=== PATIENT | female | born 1960 | race Caucasian/White ===

== ENCOUNTER 2019-01-08 11:46 | Emergency (ER) | payer MEDICAID ==
[~2019-01-08] VITALS: Ht 152.4 cm; Wt 108.9 kg
[2019-01-08] MEDS ORDERED: SODIUM CHLORIDE 0.9% 1,000 ML IV ONE (11:51)
[2019-01-08 12:14] LABS: White Blood Cell 2.8 10^3/uL (4.4-10.8)
[2019-01-08 12:15] LABS: Basophils # (auto) 0.1 uL; Eosinophils # (auto) 0 uL; Lymphocytes # (auto) 1.5 uL; Monocytes # (auto) 0.3 uL; Red Cell Distribution Width 14.2 % (11.8-14.3)
[2019-01-08 12:18] LABS: Eosinophils % (auto) 0.9 % (0.0-7.0); Hematocrit 41.6 % (36.0-46.0); Hemoglobin 14.8 g/dL (12.2-16.2); Lymphocytes % (auto) 53.7 % (10.0-50.0); Mean Corpuscular Hgb Conc. 35.6 g/dL (32.0-36.0); Mean Corpuscular Volume 98.4 fL (80.0-100.0); Monocytes % (auto) 10.2 % (0.0-12.0); Neutrophils # (auto) 0.9 uL; Neutrophils % (auto) 33.2 % (37.0-80.0); Nucleated Red Blood Cells % 0.1 %; Red Blood Cells 4.23 10^6/uL (4.0-5.20)
[2019-01-08 12:30] LABS: Albumin 3.1 g/dL (3.4-5.0); Calcium 7.8 mg/dL (8.5-10.1); Potassium 3.9 mmol/L (3.5-5.1)
[2019-01-08 12:45] LABS: BUN/Creatinine Ratio 9.1; Bilirubin, Total 1.1 mg/dL (0.2-1.0); Total Protein 8.3 g/dL (6.4-8.2)
[2019-01-08 12:49] LABS: Platelet Count (auto) 61 10^3/uL (140-450)
[2019-01-08] MEDS ORDERED: SODIUM CHLORIDE 0.9% 1,000 ML IVB ONE (13:07)
[2019-01-08] MEDS ORDERED: KETOROLAC TROMETH 30 MG/ML 1ML VIAL IV ONE (13:15)
[2019-01-08 14:15] VITALS: BP 121/79
== END 2019-01-08 14:29 | disposition home or self-care (01) ==
LOC: ER 11:46 → EDBD 11:46 → ER 14:29
DX: F10.129 Alcohol abuse with intoxication, unspecified (principal); E11.9 Type 2 diabetes mellitus without complications; I10 Essential (primary) hypertension; Y90.8 Blood alcohol level of 240 mg/100 ml or more
CPT/HCPCS: 36415; 80053; 80320; 85025; 93005; 96374; 99284; J1885; J7030

== ENCOUNTER 2019-12-12 19:31 | Inpatient (IN) | payer MEDICAID ==
[~2019-12-12] VITALS: Ht 160 cm; Wt 122.1 kg
[2019-12-12] MEDS ORDERED: SODIUM CHLORIDE 0.9% 1,000 ML IV ONE (20:15)
[2019-12-12] MEDS ORDERED: InsuLIN REG 1unit/0.01ml Soln (100units/ml) IV ONE (20:15)
[2019-12-12] MEDS ORDERED: THIAMINE 100mg/ml INJ (200mg/2ml VIAL) IV ONE (20:45)
[2019-12-12 21:14] LABS: Basophils # (auto) 0 10 ^3/uL (0-0.2); Basophils % (auto) 0.7 % (0.0-2.0); Eosinophils # (auto) 0 10 ^3/uL (0-0.8); Eosinophils % (auto) 0.8 % (0.0-7.0); Hematocrit 47.4 % (36.0-46.0); Lymphocytes # (auto) 0.8 10 ^3/uL (0.4-5.4); Lymphocytes % (auto) 16.5 % (10.0-50.0); Mean Corpuscular Hemoglobin 32.6 pg (28.0-32.0); Mean Corpuscular Hgb Conc. 33.8 g/dL (32.0-36.0); Mean Corpuscular Volume 96.4 fL (80.0-100.0); Monocytes # (auto) 0.6 10 ^3/uL (0-1.3); Monocytes % (auto) 12.6 % (0.0-12.0); Neutrophils # (auto) 3.2 10 ^3/uL (1.6-8.6); Neutrophils % (auto) 69.4 % (37.0-80.0); Nucleated Red Blood Cells % 0.1 %; Platelet Count (auto) 80 10^3/uL (140-450); Red Blood Cells 4.92 10^6/uL (4.0-5.20); Red Cell Distribution Width 14.7 % (11.8-14.3); White Blood Cell 4.6 10^3/uL (4.4-10.8)
[2019-12-12 21:24] LABS: Urine Bacteria NONE SEEN /hpf (None Seen); Urine Blood Negative /uL (Negative); Urine Mucus FEW (None Seen); Urine Specific Gravity 1.034 (1.001-1.035); Urine WBC 1 /hpf (0 - 5)
[2019-12-12 21:30] LABS: INR 1.14 (0.9-1.15); Partial Thromboplastin Time 24.5 sec (23.0-31.2)
[2019-12-12 21:35] LABS: Chloride 98 mmol/L (98-107); Potassium 4.5 mmol/L (3.5-5.1); Sodium 135 mmol/L (136-145)
[2019-12-12 21:38] LABS: Alanine Aminotransferase 103 U/L (13-56); Albumin 3.2 g/dL (3.4-5.0); Anion Gap 9 (5-15); BUN/Creatinine Ratio 10.4; Blood Urea Nitrogen 13 mg/dL (7-18); Calcium 8.7 mg/dL (8.5-10.1); Carbon Dioxide 28 mmol/L (21-32); GFR African American 57 mL/min; GFR Non-African American 47 mL/min
[2019-12-12 21:43] LABS: Alkaline Phosphatase 125 U/L (45-117); Aspartate Aminotransferase 107 U/L (15-37); Bilirubin, Total 1.3 mg/dL (0.2-1.0); Total Protein 8.2 g/dL (6.4-8.2)
[2019-12-12 21:46] LABS: Barbiturate Scree,Urine NEGATIVE (NEGATIVE); Benzodiazephine Screen, Urine NEGATIVE (NEGATIVE); Cannabinoid Screen, Urine NEGATIVE (NEGATIVE); Cocaine Screen, Urine NEGATIVE (NEGATIVE); Opiate Scree,Urine POSITIVE (NEGATIVE); Phencyclidine Screen, Urine NEGATIVE (NEGATIVE)
[2019-12-12 21:47] LABS: Glucose 422 mg/dL (74-106)
[2019-12-12 21:55] LABS: Amphetamine Screen, Urine NEGATIVE (NEGATIVE)
[2019-12-12] MEDS ORDERED: InsuLIN REG 1unit/0.01ml Soln (100units/ml) SC ONE (22:15)
[2019-12-13] MEDS ORDERED: InsuLIN REG 1unit/0.01ml Soln (100units/ml) SC ONE (00:30)
[2019-12-13] MEDS ORDERED: SODIUM CHLORIDE 0.9% 250 ML IV ONE (01:30)
[2019-12-13] MEDS ORDERED: LACTULOSE 20Gm/30ML SOLN PO ONE (02:15)
[2019-12-13] MEDS ORDERED: NITROGLYCERIN 0.4 MG SL TAB SL PRN (02:30)
[2019-12-13] MEDS ORDERED: ONDANSETRON HCL 4 MG/2 ML VIAL IV PRN ×2 (02:30→16:45)
[2019-12-13] MEDS ORDERED: MORPHINE SULF INJ 2 MG/ML SYRINGE 1ML IV PRN (02:30)
[2019-12-13] MEDS ORDERED: DEXTROSE (50%) 50ML SYRG IV PRN ×2 (02:30→16:45)
[2019-12-13] MEDS: ACCU-CHEK COMFORT CURVE STRIP VI SCH ×5 (04:18→21:51)
[2019-12-13] MEDS: InsuLIN REG 1unit/0.01ml Soln (100units/ml) SC SCH ×5 (04:20→21:53)
[2019-12-13] MEDS ORDERED: LACTULOSE 20Gm/30ML SOLN PO SCH (10:00)
[2019-12-13] MEDS: FAMOTIDINE 20 MG TAB PO SCH ×2 (10:01→21:51)
--- NOTE | 2019-12-13 11:30 | NUR ---
Telemetry admit from [facility] admitted to Telemetry unit after SBAR received. Patient oriented to Alize Swan, primary RN, unit, room, bed, and unit policies regarding patient care and visiting hours. Patient now on continuous telemetry monitoring, tele box # 45 and telemetry reading on arrival to unit is . Patient placed on bedside oxygen, weighed by bedscale and encouraged to call if they need something. All questions and concerns addressed, patient verbalized understanding. Note:
--- NOTE | 2019-12-13 11:40 | NUR ---
PT ARRIVED FROM ER VIA GURNEY, TO ROOM 204, ALERT TO SELF, UNDERSTAND ALL THE COMMANDS BUT UNABLE TO FOLLOW THROUGH, CONFUSED TO TIME AND PLACE, SLEEPY, OXYGEN 3 NC SAT AT 97%, RIVAS CATHETER TO GRAVITY, URINE IS YELLOW TO CLEAR, NEXT TO THE NURSING STATION, FALL RISK PRECAUTION, BED ALARM ACTIVATED, CALL LIGHT WITHIN REACH, CHECK ON PT AT ALL TIMES
[2019-12-13 13:00] VITALS: BP 133/64
[2019-12-13] MEDS: rifAXIMin 550 MG TAB PO SCH ×2 (13:01→21:51)
[2019-12-13] MEDS: LACTULOSE 20Gm/30ML SOLN PO SCH ×3 (13:01→21:51)
[2019-12-13 16:36] VITALS: BP 118/76
--- NOTE | 2019-12-13 17:30 | NUR ---
PT SPENT ALL MOST OF THE DAY SLEEPY, PT START TO BE FULL AWAKE, TRY TO GET OUT OF BED STATED I NEED TO PEE > , PT REMINDED THAT SHE HAVE A RIVAS CATHETER, REQUESTED A JELLO, STABLE, NO DISTRESS NOTED
--- NOTE | 2019-12-13 18:33 | NUR ---
PT CONTINUE STABLE, CONTINUE MONITORING
--- NOTE | 2019-12-13 19:20 | NUR ---
Opening Shift Note Patient is AOx3, she is awake and trying to stand up from her bed. Patient is confused about her Nowak and why she has it. Patient given education about Nowak and patient verbally agreed to understanding. Patient able to stand up with RN at bedside. Patient said, " I need to stand up because I am tired of laying down." Standby assist by this RN until patient able to sit and lay back in bed. Bed is locked in lowest position, bed alarm put on before leaving room, and call light is within reach. POC discussed with patient. Patient needs reinforcement. No s/s of distress or SOB noted. Will continue to monitor.
[2019-12-13] MEDS: INSULIN LANTUS (GLARGINE) 1 /0.01ml (100units/ml) SC SCH (21:52)
[2019-12-13 22:00] VITALS: BP 130/85
[2019-12-14 06:22] LABS: Basophils # (auto) 0 10 ^3/uL (0-0.2); Basophils % (auto) 1.4 % (0.0-2.0); Eosinophils # (auto) 0.1 10 ^3/uL (0-0.8); Eosinophils % (auto) 1.9 % (0.0-7.0); Hematocrit 40.2 % (36.0-46.0); Hemoglobin 13.7 g/dL (12.2-16.2); Mean Corpuscular Hemoglobin 32.3 pg (28.0-32.0); Mean Corpuscular Hgb Conc. 34.1 g/dL (32.0-36.0); Mean Corpuscular Volume 94.7 fL (80.0-100.0); Monocytes # (auto) 0.5 10 ^3/uL (0-1.3); Monocytes % (auto) 12.7 % (0.0-12.0); Platelet Count (auto) 67 10^3/uL (140-450); Red Blood Cells 4.25 10^6/uL (4.0-5.20); Red Cell Distribution Width 14.6 % (11.8-14.3); White Blood Cell 3.6 10^3/uL (4.4-10.8)
[2019-12-14] MEDS: LACTULOSE 20Gm/30ML SOLN PO SCH ×4 (06:43→22:24)
[2019-12-14] MEDS: ACCU-CHEK COMFORT CURVE STRIP VI SCH ×4 (06:44→22:15)
[2019-12-14] MEDS: InsuLIN REG 1unit/0.01ml Soln (100units/ml) SC SCH ×4 (06:50→22:22)
[2019-12-14 06:58] LABS: Albumin 2.6 g/dL (3.4-5.0)
[2019-12-14 07:23] LABS: BUN/Creatinine Ratio 15.8; Bilirubin, Total 1.4 mg/dL (0.2-1.0); Calcium 8.1 mg/dL (8.5-10.1); Total Protein 6.7 g/dL (6.4-8.2)
--- NOTE | 2019-12-14 07:30 | NUR ---
Opening Shift Note Assumed care of patient, awake and alert. Respirations are even and unlabored. No S/S of distress/SOB or pain. Urinary catheter in place. Collection bag is hanging below bladder and is free of kinks. Bed is low, locked with 2x side rails up. Call light is within reach. Instructed on POC and to call for assist PRN, will continue to monitor for changes Q1hr and PRN.
[2019-12-14 08:35] VITALS: BP 131/71
--- NOTE | 2019-12-14 09:10 | NUR ---
Dr. Chi at bedside MD discussing POC with patient. Patient c/o right shoulder pain. Received orders for Xray of right shoulder. Orders read back to verify.
[2019-12-14] MEDS: MULTIPLE VITAMINS W/ MINERALS TAB PO SCH (09:34)
[2019-12-14] MEDS: FAMOTIDINE 20 MG TAB PO SCH ×2 (09:34→22:25)
[2019-12-14] MEDS: rifAXIMin 550 MG TAB PO SCH ×2 (09:34→22:24)
[2019-12-14] MEDS: THIAMINE HCL 100 MG TAB PO SCH (09:36)
[2019-12-14] MEDS ORDERED: FOLIC ACID 1 MG TAB PO ONE (12:00)
--- NOTE | 2019-12-14 12:00 | NUR ---
IV insertion IV access obtained, via clean sterile technique by inserting a 20 gauge catheter at the lower left FA after (2) attempt(s). IV secured properly. No trauma to site. Patient tolerated well.
[2019-12-14] MEDS ORDERED: IOHEXOL 300 MG/ML 100ML BOTTLE IJ ONE (12:08)
--- NOTE | 2019-12-14 12:10 | NUR ---
Called Radiology To inform them that patient has a new 20g IV placed to left lower FA.
[2019-12-14 12:40] VITALS: BP 129/67
--- NOTE | 2019-12-14 13:50 | NUR ---
assessment Patient is a 58 year old female who is alert and oriented. Prior to admission patient lived home with friends and was independent. Patient informed me her PCP is Dr Hodges. Patient informed me she has no safety issues regarding returning home on discharge. Patient informed me she could use a fww for ambulating around her property. I have asked BUTCH Abarca for consult for fww. Patient informed me she has good social support. I informed patient she has a right to speak to a social media community manager regarding all care. I informed patient she has a right to participate in any and all discharge planning. Patient does not have a POA and advanced directive. I have offered patient information on POA and advanced directives. I informed the patient the advantages and benefits of having an Advanced Directive. Patient verbalized understanding and agreed to discharge plan. Addendum: 12/14/19 at 1354 by Ginger DUTTON Amended: Links added.
[2019-12-14] MEDS ORDERED: INSLISPI SC (14:03)
[2019-12-14] MEDS ORDERED: INSLANTI SC (14:03)
[2019-12-14] MEDS ORDERED: BENA20TA14 PO (14:03)
--- NOTE | 2019-12-14 15:13 | NUR ---
Home medications Updated.
--- NOTE | 2019-12-14 15:41 | NUR ---
D/C Planning Per social service consult for a walker. Faxed clinical information to [employer]. Per Windy with DME they will deliver walker between 16:30-17:30.
[2019-12-14 16:29] VITALS: BP 103/52
--- NOTE | 2019-12-14 16:44 | NUR ---
Bone scan Per Waqar from Nuclear medicine, it is too late for patient to have ordered bone scan done. Patient will have to wait until Tuesday to get bone scan done. Will relay information.
--- NOTE | 2019-12-14 16:51 | NUR ---
FWW Delivered to bedside.
--- NOTE | 2019-12-14 19:20 | NUR ---
Opening Shift Note Assumed care of patient after receiving report from day RN. Patient is awake and alert with no S/S of distress/SOB or pain. Call light within reach, bed in lowest, locked position x2 side rails. Instructed on POC and to call for assist PRN, will continue to monitor for changes Q1hr and PRN.
[2019-12-14 22:00] VITALS: BP 136/59
[2019-12-14] MEDS: INSULIN LANTUS (GLARGINE) 1 /0.01ml (100units/ml) SC SCH (22:22)
--- NOTE | 2019-12-14 23:04 | NUR ---
Patient ambulated, Nowak education Patient ambulated with standby assistance to help with carrying Nowak catheter bag. Patient wore nonslip socks and ambulated with even, steady gait. Patient was concerned about 'how she would poop with a catheter thing inside her'. Patient educated regarding where the catheter is placed in order to empty the urine from the bladder and that stool comes from a different hole, that it will not be a problem when she needs to have a BM. Complete linen change performed. Patient ambulated back to bed with standby assistance. Patient now in bed resting comfortably with bed alarm on for safety.
--- NOTE | 2019-12-15 00:18 | NUR ---
Care endorsed to CARYN Griffin RN.
--- NOTE | 2019-12-15 00:20 | NUR ---
Received report from Gloria Storm.
[2019-12-15 05:04] LABS: Basophils # (auto) 0 10 ^3/uL (0-0.2); Hemoglobin 14.1 g/dL (12.2-16.2); Lymphocytes # (auto) 0.9 10 ^3/uL (0.4-5.4); Lymphocytes % (auto) 29.8 % (10.0-50.0); Monocytes # (auto) 0.4 10 ^3/uL (0-1.3); Neutrophils # (auto) 1.7 10 ^3/uL (1.6-8.6); Nucleated Red Blood Cells % 0.1 %; Red Cell Distribution Width 14.6 % (11.8-14.3); White Blood Cell 3.2 10^3/uL (4.4-10.8)
[2019-12-15 05:06] LABS: Basophils % (auto) 0.8 % (0.0-2.0); Eosinophils # (auto) 0.1 10 ^3/uL (0-0.8); Eosinophils % (auto) 1.8 % (0.0-7.0); Hematocrit 40.7 % (36.0-46.0); Mean Corpuscular Hemoglobin 32.7 pg (28.0-32.0); Mean Corpuscular Hgb Conc. 34.7 g/dL (32.0-36.0); Mean Corpuscular Volume 94.3 fL (80.0-100.0); Monocytes % (auto) 12.8 % (0.0-12.0); Neutrophils % (auto) 54.8 % (37.0-80.0); Platelet Count (auto) 61 10^3/uL (140-450); Red Blood Cells 4.31 10^6/uL (4.0-5.20)
[2019-12-15 05:22] LABS: INR 1.19 (0.9-1.15)
[2019-12-15] MEDS: LACTULOSE 20Gm/30ML SOLN PO SCH ×2 (05:22→11:32)
[2019-12-15 05:26] LABS: Albumin 2.5 g/dL (3.4-5.0); Calcium 8.2 mg/dL (8.5-10.1); Potassium 3.8 mmol/L (3.5-5.1)
[2019-12-15 05:29] LABS: BUN/Creatinine Ratio 13.8; Bilirubin, Total 1.3 mg/dL (0.2-1.0); Phosphorus 2.9 mg/dL (2.5-4.90); Total Protein 6.4 g/dL (6.4-8.2)
[2019-12-15 05:40] VITALS: BP 113/62
[2019-12-15] MEDS: ACCU-CHEK COMFORT CURVE STRIP VI SCH ×2 (06:26→11:31)
[2019-12-15] MEDS: InsuLIN REG 1unit/0.01ml Soln (100units/ml) SC SCH ×2 (06:27→11:31)
--- NOTE | 2019-12-15 07:17 | NUR ---
Repot given to Gloria Abarca, patient is resting no distress.
--- NOTE | 2019-12-15 07:30 | NUR ---
Opening Shift Note Assumed care of patient, awake and alert. Respirations are even and unlabored. No S/S of distress/SOB or pain. Bed is low, locked with 2x side rails up. Call light is within reach. Instructed on POC and to call for assist PRN, will continue to monitor for changes Q1hr and PRN.
[2019-12-15 08:40] VITALS: BP 121/69
--- NOTE | 2019-12-15 08:45 | NUR ---
Dr. Chi at bedside Discussing POC with patient. Patient to be discharged later today. Patient wishes to follow up with Alex Carpio for continuation of care.
[2019-12-15] MEDS: MULTIPLE VITAMINS W/ MINERALS TAB PO SCH (08:59)
[2019-12-15] MEDS: FAMOTIDINE 20 MG TAB PO SCH (08:59)
[2019-12-15] MEDS: rifAXIMin 550 MG TAB PO SCH (08:59)
[2019-12-15] MEDS: THIAMINE HCL 100 MG TAB PO SCH (08:59)
[2019-12-15] MEDS ORDERED: FOLIC ACID 1 MG TAB PO SCH (10:00)
[2019-12-15] MEDS ORDERED: MULT-351 PO (11:14)
[2019-12-15] MEDS ORDERED: LACT10SO3 PO (11:14)
[2019-12-15] MEDS ORDERED: FOLI1TAB6 PO (11:14)
[2019-12-15] MEDS ORDERED: RIFA550T PO (11:14)
[2019-12-15] MEDS ORDERED: THIA100T10 PO (11:14)
[2019-12-15] MEDS ORDERED: OMEP-263 PO (11:17)
[2019-12-15 12:35] VITALS: BP 110/66
[2019-12-15 13:38] VITALS: BP 109/62
--- NOTE | 2019-12-15 16:08 | NUR ---
Discharge instructions given as ordered. Encourage to follow up with PMD as instructed. Provided patient with contact information to PCP Dr. Tillman and also provided patient with information to [facility] for F/U with Urology and Hepatology. All questions and concerns addressed. Patient verbalized understanding. IV removed with catheter intact, pressure dressing applied, nava catheter removed. Telemetry unit returned to ICU. Patient taken to taxi vehicle via wheelchair with all personal belongings and FWW. Patient also has prescriptions that were filled by [facility]. Patient advised to take medications as directed and to not stop/skip any doses unless recommended by her doctor. No distress noted at time of departure.
[2019-12-17 13:12] LABS: Hepatitis B Surface Antibody Negative
[2019-12-17 13:41] LABS: Hepatitis A Total Antibody Positive
[2019-12-17 16:56] LABS: Hepatitis B Core Total AB Negative; Hepatitis B Surface Antigen Negative (Negative)
[2019-12-19 09:09] LABS: Hepatitis C Antibody Positive (Negative)
== END 2019-12-15 16:44 | disposition home or self-care (01) | DRG 279 ==
LOC: ER 19:31 → EDBD 19:31 → TELE 19:32 → TELE-CENTR 12-13 11:37
PROVIDERS: ADMIT Nurse Practitioner; ATTEND Internal Medicine
DX: K72.90 Hepatic failure, unspecified without coma (principal); N17.9 Acute kidney failure, unspecified; E44.1 Mild protein-calorie malnutrition; E11.65 Type 2 diabetes mellitus with hyperglycemia; E66.01 Morbid (severe) obesity due to excess calories; E72.20 Disorder of urea cycle metabolism, unspecified; Z68.42 Body mass index [BMI] 45.0-49.9, adult; E86.0 Dehydration; K70.30 Alcoholic cirrhosis of liver without ascites; E11.22 Type 2 diabetes mellitus with diabetic chronic kidney disease; N18.9 Chronic kidney disease, unspecified; I12.9 Hypertensive chronic kidney disease with stage 1 through stage 4 chronic kidney disease, or unspecified chronic kidney disease; D25.9 Leiomyoma of uterus, unspecified; F10.20 Alcohol dependence, uncomplicated; C64.2 Malignant neoplasm of left kidney, except renal pelvis; K82.8 Other specified diseases of gallbladder; Z79.4 Long term (current) use of insulin; Z83.3 Family history of diabetes mellitus; Z79.899 Other long term (current) drug therapy
CPT/HCPCS: 36415; 70450; 72125; 73030; 74176; 74178; 80053; 80061; 80307; 81001; 82140; 82962; 83036; 83690; 83735; 83880; 84100; 84443; 84484; 85025; 85610; 85730; 86704; 86706; 86708; 86803; 87340; 93005; 96361; 96372; 96374; 96375; G0378; J1815; J2405

== ENCOUNTER 2020-11-21 20:48 | Emergency (ER) | payer MEDICAID ==
[~2020-11-21] VITALS: Ht 162.6 cm; Wt 90.7 kg
[~2020-11-21 20:48] MED LIST: BENA20TA14 PO; FOLI1TAB6 PO; INSLANTI SC; INSLISPI SC; LACT10SO3 PO; MULT-351 PO; OMEP-263 PO; RIFA550T PO; THIA100T10 PO
[2020-11-21 22:12] LABS: Basophils # (auto) 0 10 ^3/uL (0-0.2); Basophils % (auto) 1.2 % (0.0-2.0); Eosinophils # (auto) 0 10 ^3/uL (0-0.8); Eosinophils % (auto) 0.5 % (0.0-7.0); Hematocrit 46.2 % (36.0-46.0); Hemoglobin 15.5 g/dL (12.2-16.2); Lymphocytes # (auto) 1.6 10 ^3/uL (0.4-5.4); Lymphocytes % (auto) 42.4 % (10.0-50.0); Mean Corpuscular Hgb Conc. 33.6 g/dL (32.0-36.0); Mean Corpuscular Volume 98.3 fL (80.0-100.0); Monocytes # (auto) 0.4 10 ^3/uL (0-1.3); Monocytes % (auto) 9.3 % (0.0-12.0); Neutrophils # (auto) 1.8 10 ^3/uL (1.6-8.6); Neutrophils % (auto) 46.6 % (37.0-80.0); Nucleated Red Blood Cells % 0.4 %; Red Cell Distribution Width 14.7 % (11.8-14.3); White Blood Cell 3.8 10^3/uL (4.4-10.8)
[2020-11-21 22:27] LABS: INR 1.27 (0.9-1.15); Partial Thromboplastin Time 25.8 sec (23.6-33.0)
[2020-11-21 22:29] LABS: Urine Bacteria FEW /hpf (None Seen); Urine Blood Negative /uL (Negative); Urine WBC 1 /hpf (0 - 5)
[2020-11-21 22:38] LABS: Albumin 3.2 g/dL (3.4-5.0); Anion Gap 13 (5-15); Blood Urea Nitrogen 7 mg/dL (7-18); Calcium 9.2 mg/dL (8.5-10.1); Carbon Dioxide 27 mmol/L (21-32); Chloride 96 mmol/L (98-107); Magnesium 2.2 mg/dL (1.6-2.6); Potassium 4.2 mmol/L (3.5-5.1); Sodium 136 mmol/L (136-145)
[2020-11-21 22:39] LABS: Salicylate < 1.7 mg/dL (2.8-20.0)
[2020-11-21 22:41] LABS: Alanine Aminotransferase 188 U/L (13-56); Aspartate Aminotransferase 205 U/L (15-37); Bilirubin, Total 1.2 mg/dL (0.2-1.0); GFR African American 65 mL/min; GFR Non-African American 53 mL/min; Total Protein 8.5 g/dL (6.4-8.2)
[2020-11-21 22:46] LABS: Alkaline Phosphatase 145 U/L (45-117)
[2020-11-21 22:47] LABS: Acetaminophen < 2.0 ug/mL (10-30)
[2020-11-21] MEDS ORDERED: SODIUM CHLORIDE 0.9% 1,000 ML IV ONE (23:30)
[2020-11-22] MEDS ORDERED: diazePAM 5 MG TAB PO ONE (00:15)
[2020-11-22 00:20] LABS: Blood Alcohol 353.3 mg/dL (0-5)
[2020-11-22 00:21] LABS: BUN/Creatinine Ratio 6.3
[2020-11-22 00:24] LABS: Glucose 605 mg/dL (74-106)
[2020-11-22 01:39] LABS: Amphetamine Screen, Urine NEGATIVE (NEGATIVE); Barbiturate Scree,Urine NEGATIVE (NEGATIVE); Benzodiazephine Screen, Urine NEGATIVE (NEGATIVE); Cannabinoid Screen, Urine NEGATIVE (NEGATIVE); Cocaine Screen, Urine NEGATIVE (NEGATIVE); Opiate Scree,Urine NEGATIVE (NEGATIVE); Phencyclidine Screen, Urine NEGATIVE (NEGATIVE)
[2020-11-22] MEDS ORDERED: SODIUM CHLORIDE 0.9% 1,000 ML IV ONE (01:45)
[2020-11-22] MEDS: ACCU-CHEK COMFORT CURVE STRIP VI SCH ×4 (02:35→05:05)
[2020-11-22 06:03] VITALS: BP 128/59
== END 2020-11-22 06:18 | disposition home or self-care (01) ==
LOC: EDBD 20:48 → ER 20:49
DX: F10.129 Alcohol abuse with intoxication, unspecified (principal); M54.50 Low back pain, unspecified; J45.909 Unspecified asthma, uncomplicated; E11.9 Type 2 diabetes mellitus without complications; I10 Essential (primary) hypertension; I25.2 Old myocardial infarction; Z79.4 Long term (current) use of insulin; Z79.899 Other long term (current) drug therapy; Y90.8 Blood alcohol level of 240 mg/100 ml or more
CPT/HCPCS: 36415; 70450; 71045; 72125; 72131; 80053; 80307; 80320; 80329; 81001; 82010; 82962; 83735; 84484; 85025; 85610; 85730; 96360; 96361; 99285; J7030; 93005